=== PATIENT | female | born 2000 | race Caucasian/White ===

== ENCOUNTER 2023-03-28 18:49 | Outpatient (REF) | payer OTHER, SELFPAY ==
--- NOTE | ~2023-03-28 | MR_ITS ---
EXAMINATION: MR ANKLE WITHOUT CONTRAST, LEFT CLINICAL INFORMATION: Posterior left ankle pain and swelling. Injury in February 2023. Worsening pain and swelling. Evaluate for an Achilles tendon tear. COMPARISON: None available. TECHNIQUE: MRI of the ankle was performed using routine sequences on a high-field scanner. FINDINGS: BONE AND ARTICULAR CARTILAGE: There is an os trigonum along the posterior aspect of the talus measuring up to 1.0 cm in ML dimension with mild degenerative cystic change and associated marrow edema as well as mild adjacent soft tissue edema. Findings could indicate a degree of posterior impingement. 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 No associated edema. No acute fracture or dislocation. The ankle mortise is maintained. No talar osteochondral lesion. Intact articular cartilage. ACHILLES TENDON: Minimally increased T2 signal within the distal Achilles tendon which could represent normal variation versus minimal tendinosis. No measurable tear. OTHER TENDONS: Mildly increased T2 signal within the peroneal brevis tendon at the level of the lateral malleolus and extending distally where the tendon appears slightly attenuated. Findings could represent tendinosis and minimal longitudinal partial tearing. This measures approximately 4 cm in length. No full-thickness transverse tendon tear or tendon retraction. Minimal tenosynovitis. LIGAMENTS: No evidence of acute ligament injury. JOINT FLUID AND SOFT TISSUES: Trace fluid within the retrocalcaneal bursa, consistent with minimal bursitis. Small posterior subtalar joint effusion. PLANTAR FASCIA: Intact. SINUS TARSI AND TARSAL TUNNEL: Patent. MR/MR ankle LT wo con IMPRESSION: 1. 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 Findings could indicate a degree of posterior impingement. Small posterior subtalar joint effusion. 2. 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 Possible minimal distal Achilles tendinosis without a measurable tear. Minimal retrocalcaneal bursitis. 3. Tendinosis and minimal longitudinal partial tearing of the peroneal brevis tendon at the level of the lateral malleolus measuring 4 cm in length. Minimal tenosynovitis. No full-thickness transverse tendon tear or tendon retraction.
== END 2023-03-28 18:50 | disposition home or self-care (01) ==
LOC: HO.MRI 18:49
PROVIDERS: Visit Provider Family Medicine Sports Medicine
DX: M25.572 Pain in left ankle and joints of left foot (principal)
CPT/HCPCS: 73721

== ENCOUNTER 2023-07-24 08:52 | Outpatient (REF) | payer OTHER, SELFPAY ==
--- NOTE | ~2023-07-24 | CT_ITS ---
EXAMINATION: CT ABDOMEN WITHOUT CONTRAST CLINICAL INFORMATION: Left upper quadrant pain with nausea and diarrhea. COMPARISON: None available. TECHNIQUE: Contiguous axial thin section helical images of the abdomen were performed without contrast. The data set was reformatted in the coronal and sagittal planes and reviewed on an independent workstation. This CT examination was performed using dose optimization techniques as appropriate, variously including the following: *Automated exposure control *Adjustment of mA and/or kV according to patient size (this includes techniques or standardized protocols for targeted exams where dose is matched to indication/reason for exam; i.e. extremities or head) *Use of iterative reconstruction technique DLP: 230 mGy-cm FINDINGS: LUNG BASES: The visualized lung bases are unremarkable. LIVER, GALLBLADDER, AND BILIARY TREE: The liver is enlarged at 18 cm in cephalocaudad dimension with decreased attenuation consistent with hepatic steatosis. No focal hepatic lesion or biliary ductal dilatation is present. The gallbladder is unremarkable with no evidence of radiopaque gallstones, gallbladder wall thickening, or obvious pericholecystic inflammatory changes. PANCREAS: Unremarkable. SPLEEN: Unremarkable. ADRENAL GLANDS: Unremarkable. KIDNEYS AND URETERS: The kidneys are normal in size, shape, and attenuation. No hydronephrosis, hydroureter, or calculi seen. No perinephric stranding. GASTROINTESTINAL TRACT: There is a question of mucosal thickening in the right colon as well as some mucosal thickening in the partially visualized terminal ileum. The visualized bowel is otherwise unremarkable. The appendix is unremarkable. ABDOMINAL WALL: No significant hernia is appreciated. LYMPH NODES: No adenopathy detected. VASCULAR: Unremarkable. OSSEOUS STRUCTURES: There is grade 1 anterolisthesis of L5 upon S1 with bilateral L5 pars defects. Visualized SI joints appear normal. CT/CT abdomen wo IV con IMPRESSION: 1. Enlarged fatty liver. 2. Question of mucosal thickening in the right colon and terminal ileum. An upper GI with small-bowel follow-through and/or barium enema may be useful for further evaluation if clinically appropriate. 3. Grade 1 anterolisthesis of L5 upon S1 with bilateral L5 pars defects.
[2023-07-24] MEDS: Barium Sulfate Oral (Mocha) 450 ML ORAL.SUSP PO (10:42)
== END 2023-07-24 08:53 | disposition home or self-care (01) ==
LOC: HO.CT 08:52
PROVIDERS: Visit Provider Family Medicine Sports Medicine
DX: R10.12 Left upper quadrant pain (principal)
CPT/HCPCS: 74150

== ENCOUNTER 2024-06-11 06:39 | Outpatient (REF) | payer OTHER, SELFPAY ==
--- NOTE | ~2024-06-11 | US_ITS ---
EXAMINATION: US PELVIS CLINICAL INFORMATION: Menorrhagia. COMPARISON: None available. TECHNIQUE: Ultrasound of the pelvis is performed using both transabdominal and transvaginal transducers along with Doppler. Transvaginal imaging is performed due to inadequate visualization transabdominally. FINDINGS: Uterus: The uterus is anteversion flexion position and measures 8 x 3 x 4 cm. Intrauterine contraceptive device along the uterine cavity. The endocervical canal and appears normal. The double wall endometrial thickness is 3 mm. The uterus is smooth in contour and has normal myometrial echogenicity. No visible fibroid. Adnexa: Both ovaries are visualized. There is normal color flow to the adnexa. There is no ovarian torsion. There is no pelvic ascites or fluid collection. Right ovary measures 5 x 3 x 2 cm. Volume: 16 cc. Is a 2.1 cm round anechoic structure which may represent a dominant follicle Left ovary measures 2 x 2 x 2 cm. Volume: 4 cc. US/US pelvic and transvaginal IMPRESSION: Intrauterine contraceptive device in satisfactory position. No uterine fibroid. No ovarian torsion. 2.1 cm cystic structure , right ovary, likely dominant follicle. Electronically signed by: Rock Gallegos MD 06/11/2024 12:06 PM EDT RP
== END 2024-06-11 06:40 | disposition home or self-care (01) ==
LOC: HO.UMASIMG 06:39
PROVIDERS: Visit Provider Student in an Organized Health Care Education/Training Program
DX: N92.0 Excessive and frequent menstruation with regular cycle (principal)
CPT/HCPCS: 76830; 76856

== ENCOUNTER → 2024-06-11 10:30 | Outpatient (BNV) | payer OTHER, SELFPAY | PROVIDERS: Visit Provider Radiology Diagnostic Radiology | DX: N92.0 Excessive and frequent menstruation with regular cycle (principal) | CPT/HCPCS: 76830; 76856 ==